=== PATIENT | male | born 1985 | race Caucasian/White ===

== ENCOUNTER 2017-06-05 20:44 | Emergency (ER) | payer BC ==
[2017-06-05] MEDS ORDERED: Diphtheria,Pertussis(Acell),Tetanus Vaccine 0.5 ML Syringe IM ONE (20:59)
--- NOTE | 2017-06-05 20:59 | EDM.PDOC ---
ED HPI GENERAL MEDICAL PROBLEM - General Chief Complaint: Eye Problems Stated Complaint: METAL INSIDE RT EYE Time Seen by Provider: 06/05/17 20:50 Source of Information: Reports: Patient History Limitations: Reports: No Limitations - History of Present Illness INITIAL COMMENTS - FREE TEXT/NARRATIVE: HISTORY AND PHYSICAL: History of present illness: Patient is a 31-year-old male who presents to the emergency room with complaints of "metal" foreign body to his right eye. States yesterday he was cutting a piece of metal when he felt pain and "metal fling" into his right eye. He continued to work and stated that it felt irritated and dry. As the day progressed he noticed a foreign body which she tried to remove with a tweezer. He states he was unsuccessful and proceeded to the emergency room today. Patient does wear corrective glasses. He was wearing these while cutting the metal. Denies any visual changes. States his eye feels irritated. Unsure of his last tetanus. Has an appointment tomorrow to have an eye examination in [place]. Review of systems: As per history of present illness and below otherwise all systems reviewed and negative. Past medical history: As per history of present illness and as reviewed below otherwise noncontributory. Surgical history: As per history of present illness and as reviewed below otherwise noncontributory. Social history: No reported history of drug or alcohol abuse. Family history: As per history of present illness and as reviewed below otherwise noncontributory. Physical exam: General: Well-developed and well-nourished 31-year-old male. Alert and oriented. Nontoxic appearing and in no acute distress. HEENT: Atraumatic, normocephalic, pupils reactive, right eye is slightly injected with a foreign body (pin point) at the 4 o'clock position on the iris. No drainage or discharge noted. Negative for conjunctival pallor or scleral icterus, mucous membranes moist, throat clear, neck supple, nontender, trachea midline. Lungs: Clear to auscultation, breath sounds equal bilaterally, chest nontender. Heart: S1S2, regular, negative for clicks, rubs, or JVD. Abdomen: Soft, nondistended, nontender. Negative for masses or hepatosplenomegaly. Negative for costovertebral tenderness. Pelvis: Stable nontender. Genitourinary: Deferred. Rectal: Deferred. Extremities: Atraumatic, negative for cords or calf pain. Neurovascular unremarkable. Neuro: Awake, alert, oriented. Cranial nerves II through XII unremarkable. Cerebellum unremarkable. Motor and sensory unremarkable throughout. Exam nonfocal. Dr. Holman, the grain merchandising manager account relationship manager, was consulted on this case. He states he will see the patient now after discharge over at [facility]. I did offer to prescribe the patient antibiotic eye drop prior to discharge, he states he will provide this after his evaluation. Patient did receive a tetanus booster while here. Explained this to the patient, he voices understanding and is agreeable to plan of care. He denies any further questions at this time. Diagnostics: Fluroscene eye exam Therapeutics: Tdap, Propairicaine eye gtts Impression: Foreign body of right eye Plan: 1. Immediately present to the [facility] across the bypass to meet Dr. Holman, the grain merchandising manager. Present to the front door (DOOR #1). He will meet you there at 9:30 PM. Please inquire about a antibiotic eyedrop. 2. Follow up with her primary care provider in the next 1-2 days. Return to the ED as needed and as discussed. Definitive disposition and diagnosis as appropriate pending reevaluation and review of above. Duration: Day(s): Location: Reports: Face - Related Data Allergies Allergy/AdvReac Type Severity Reaction Status Date / Time No Known Allergies Allergy Verified 06/05/17 20:52 Home Meds: Home Meds . [No Known Home Meds] 06/05/17 [History] ED ROS GENERAL - Review of Systems Review Of Systems: ROS reveals no pertinent complaints other than HPI. ED EXAM GENERAL W FULL EYE - Physical Exam Exam: See Below (See dictation) Course - Vital Signs Last Recorded V/S: Last Vital Signs Temp 98 F 06/05/17 20:44 Pulse 78 06/05/17 20:44 Resp 18 06/05/17 20:44 BP 158/94 H 06/05/17 20:44 Pulse Ox 97 06/05/17 20:44 - Orders/Labs/Meds Orders: Active Orders 24 hr Category Date Time Status Vaccines to be Administered [RC] PER UNIT ROUTINE Care 06/05/17 20:59 Ordered Diphth,Pertuss(Acell),Tet Vac [Adacel] Med 01/17/18 20:59 Once 0.5 ml IM .ONCE ONE Proparacaine [Proparacaine 0.5% Ophth Soln] Med 06/05/17 21:00 Active 2 ml EYERT STAT Medication Orders Diphtheria/Tetanus/Acell Pertussis (Adacel) 0.5 ml IM .ONCE ONE Stop: 06/05/17 21:00 Proparacaine HCl (Proparacaine 0.5% Ophth Soln) 2 ml EYERT STAT FLORA Last Admin: 06/05/17 20:57 Dose: 2 ml Meds: Medications Generic Name Dose Route Start Last Admin Trade Name Freq PRN Reason Stop Dose Admin Diphtheria/Tetanus/Acell Pertussis 0.5 ml 06/05/17 20:59 Adacel IM 06/05/17 21:00 .ONCE ONE Proparacaine HCl 2 ml 06/05/17 21:00 06/05/17 20:57 Proparacaine 0.5% Ophth Soln EYERT 2 ml STAT FLORA Administration Departure - Departure Time of Disposition: 21:06 Disposition: Home, Self-Care 01 Clinical Impression: Foreign body of right eye Qualifiers: Encounter type: initial encounter Qualified Code(s): T15.91XA - Foreign body on external eye, part unspecified, right eye, initial encounter - Discharge Information Referrals: PCP,None [Primary Care Provider] - Forms: ED Department Discharge Additional Instructions: My general discharge The following information is given to patients seen in the emergency department who are being discharged to home. This information is to outline your options for follow-up care. We provide all patients seen in our emergency department with a follow-up referral. The need for follow-up, as well as the timing and circumstances, are variable depending upon the specifics of your emergency department visit. If you don't have a primary care physician on staff, we will provide you with a referral. We always advise you to contact your personal physician following an emergency department visit to inform them of the circumstance of the visit and for follow-up with them and/or the need for any referrals to a consulting specialist. The emergency department will also refer you to a specialist when appropriate. This referral assures that you have the opportunity for follow-up care with a specialist. All of these measure are taken in an effort to provide you with optimal care, which includes your follow-up. Under all circumstances we always encourage you to contact your private physician who remains a resource for coordinating your care. When calling for follow-up care, please make the office aware that this follow-up is from your recent emergency room visit. If for any reason you are refused follow-up, please contact the [facility] Emergency Department at and asked to speak to the emergency department charge nurse. [address] [address] 1. Immediately present to the [facility] across the bypass to meet Dr. Holman, the grain merchandising manager. Present to the front door (DOOR #1). He will meet you there at 9:30 PM. Please inquire about a antibiotic eyedrop. The address is listed above. 2. Follow up with her primary care provider in the next 1-2 days. Return to the ED as needed and as discussed. - My Orders Last 24 Hours: My Active Orders 06/05/17 20:59 Vaccines to be Administered [RC] PER UNIT ROUTINE Diphth,Pertuss(Acell),Tet Vac [Adacel] 0.5 ml IM .ONCE ONE - Assessment/Plan Last 24 Hours: My Active Orders 06/05/17 20:59 Vaccines to be Administered [RC] PER UNIT ROUTINE Diphth,Pertuss(Acell),Tet Vac [Adacel] 0.5 ml IM .ONCE ONE
[2017-06-05] MEDS ORDERED: Proparacaine 0.5% Ophth Soln 15 ML Bottle EYERT SCH (21:00)
== END 2017-06-05 21:15 | disposition home or self-care (01) ==
LOC: MW.ED 20:44
DX: T15.91XA Foreign body on external eye, part unspecified, right eye, initial encounter (principal); Z23 Encounter for immunization
CPT/HCPCS: 90471; 90715; 99283-25; 99284

== ENCOUNTER 2017-07-26 23:09 | Emergency (ER) | payer BC ==
[2017-07-26] MEDS ORDERED: Lidocaine 1% 20 ML MDV INJECT ONE (23:24)
[2017-07-26] MEDS ORDERED: Bacitracin Oint 1 GM U/D Packet TOP ONE (23:25)
--- NOTE | 2017-07-26 23:30 | EDM.PDOC ---
ED HPI GENERAL MEDICAL PROBLEM - General Chief Complaint: Laceration Stated Complaint: L RING FINGER INJURY Time Seen by Provider: 07/26/17 23:13 - History of Present Illness INITIAL COMMENTS - FREE TEXT/NARRATIVE: HISTORY AND PHYSICAL: History of present illness: The patient is a 31-year-old male who is up-to-date on his tetanus shot and is right-hand dominant presents with complaints of cutting his finger on a carbon plant grinder at home tonight. The patient blames of a laceration to the dorsal aspect of the left fourth digit and came here at the insistence of his . Patient says he is able to move the finger and there is only minimal pain in this area. He denies any other injuries. Patient says he does not feel that there was any crushing component to the injury. Review of systems: As per history of present illness and below otherwise all systems reviewed and negative. Past medical history: As per history of present illness and as reviewed below otherwise noncontributory. Surgical history: As per history of present illness and as reviewed below otherwise noncontributory. Social history: No reported history of drug or alcohol abuse. Family history: As per history of present illness and as reviewed below otherwise noncontributory. Physical exam: Gen.: Well-developed well-nourished man who is nontoxic and speaking clearly and easily in the ED. Vital signs of been reviewed by me HEENT: Atraumatic, normocephalic, negative for conjunctival pallor or scleral icterus, mucous membranes moist, throat clear, neck supple, nontender, trachea midline. Lungs: Clear to auscultation, breath sounds equal bilaterally, chest nontender. Heart: S1S2, regular rate and rhythm no overt murmurs Abdomen: Soft, nondistended, nontender. NABS Pelvis: Deferred Genitourinary: Deferred. Rectal: Deferred. Extremities: Atraumatic and full range of motion of all extremities with the exception of the left fourth digit where there is a jagged 1 cm laceration at the base of the cuticle/nailbed. There is a small triangular area of tissue loss seen at the most distal aspect and the nail and nailbed are intact. There is no soft tissue swelling and the patient is able to flex and extend at the finger without difficulties. There is no gross bleeding. The remainder of the fingers and left hand are without injuries. The legs are, negative for cords or calf pain. Neurovascular unremarkable. Neuro: Awake, alert, oriented. Cranial nerves II through XII unremarkable. Cerebellum unremarkable. Motor and sensory unremarkable throughout. Exam nonfocal. Diagnostics: Patient was offered a finger x-ray and defers Therapeutics: Wound care bacitracin and tube gauze Procedure note: After the wound was cleansed by nursing the area was prepped and draped in sterile fashion and a 1% lidocaine without epinephrine digital block was placed. The wound was explored and no foreign bodies were appreciated. The skin edges were reapproximated using a total number of #2 sutures of 4-0 nylon. The patient was made aware of the small area of tissue loss and the need to allow that to heal by secondary intention. The patient tolerated the procedure well and there were no complications. Bacitracin and a tube gauze were placed by nursing Impression: Left fourth finger laceration Definitive disposition and diagnosis as appropriate pending reevaluation and review of above. - Related Data Allergies Allergy/AdvReac Type Severity Reaction Status Date / Time No Known Allergies Allergy Verified 07/26/17 23:16 Home Meds: Home Meds Albuterol Sulfate 0.63 mg IH ASDIRECTED PRN 07/26/17 [History] Past Medical History - Past Health History Medical/Surgical History: Denies Medical/Surgical History HEENT History: Reports: Impaired Vision Other HEENT History: wears glasses Social & Family History - Family History Family Medical History: Noncontributory - Recreational Drug Use Recreational Drug Use: No ED ROS GENERAL - Review of Systems Review Of Systems: ROS reveals no pertinent complaints other than HPI. ED EXAM, SKIN/RASH Exam: See Below (See dictation) Course - Vital Signs Last Recorded V/S: Last Vital Signs Temp 36.3 C 07/26/17 23:18 Pulse 70 07/26/17 23:18 Resp 14 07/26/17 23:18 BP 144/84 H 07/26/17 23:18 Pulse Ox 96 07/26/17 23:18 - Orders/Labs/Meds Orders: Active Orders 24 hr Category Date Time Status Communication Order [RC] STAT Care 07/26/17 23:24 Active Meds: Medications Discontinued Medications Generic Name Dose Route Start Last Admin Trade Name Freq PRN Reason Stop Dose Admin Bacitracin 1 dose 07/26/17 23:25 07/26/17 23:30 Bacitracin Oint 1 Gm TOP 07/26/17 23:26 1 dose ONETIME ONE Administration Lidocaine HCl 20 ml 07/26/17 23:24 07/26/17 23:30 Xylocaine 1% INJECT 07/26/17 23:25 20 ml ONETIME ONE Administration Departure - Departure Time of Disposition: 23:50 Disposition: Home, Self-Care 01 Condition: Good Clinical Impression: Laceration of left ring finger Qualifiers: Encounter type: initial encounter Damage to nail status: without damage Foreign body presence: without foreign body Qualified Code(s): S61.215A - Laceration without foreign body of left ring finger without damage to nail, initial encounter - Discharge Information Referrals: PCP,Not In Area [Primary Care Provider] - Forms: ED Department Discharge Additional Instructions: The following information is given to patients seen in the emergency department who are being discharged to home. This information is to outline your options for follow-up care. We provide all patients seen in our emergency department with a follow-up referral. The need for follow-up, as well as the timing and circumstances, are variable depending upon the specifics of your emergency department visit. If you don't have a primary care physician on staff, we will provide you with a referral. We always advise you to contact your personal physician following an emergency department visit to inform them of the circumstance of the visit and for follow-up with them and/or the need for any referrals to a consulting specialist. The emergency department will also refer you to a specialist when appropriate. This referral assures that you have the opportunity for followup care with a specialist. All of these measure are taken in an effort to provide you with optimal care, which includes your followup. Under all circumstances we always encourage you to contact your private physician who remains a resource for coordinating your care. When calling for followup care, please make the office aware that this follow-up is from your recent emergency room visit. If for any reason you are refused follow-up, please contact the [facility] emergency department at and ask to speak to the emergency department charge nurse. [facility] Primary care- Internal Medicine and Family [address] [address] [facility] Specialty clinic-Plastic Surgery and Hand Surgery Professional [address] [address] Keep the dressing that was placed in the ER on for the next 24 hours then remove and cleanse with mild soap and water pat dry and apply bacitracin. You can continue the ointment for the next one week. Sutures should be removed in 7 days either here, with your provider in the clinic, or with our hand specialist Dr. Bauer as you choose. Return to ER as needed and as discussed - My Orders Last 24 Hours: My Active Orders 07/26/17 23:24 Communication Order [RC] STAT - Assessment/Plan Last 24 Hours: My Active Orders 07/26/17 23:24 Communication Order [RC] STAT
== END 2017-07-27 | disposition home or self-care (01) ==
LOC: MW.ED 23:09 → EDBD 23:09 → MW.ED 07-27
DX: S61.215A Laceration without foreign body of left ring finger without damage to nail, initial encounter (principal); W31.89XA Contact with other specified machinery, initial encounter
CPT/HCPCS: 12001; 99282; 99283

== ENCOUNTER 2019-03-01 01:14 | Emergency (ER) | payer BC ==
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
--- NOTE | 2019-03-01 02:07 | CR ---
Indication: Swelling Technique: Three views right hand Comparison: None Findings/impression: Plate and screw hardware in the distal 5th metacarpal. No hardware complication identified. Mildly comminuted fracture of the 2nd metacarpal head, possibly subacute. Mild soft tissue swelling of the hand. Remainder of the osseous structures are intact. Dictated by Aydee Turpin MD @ Mar 01 2019 2:05AM Signed by Dr. Aydee Turpin @ Mar 01 2019 2:05AM
== END 2019-03-01 02:20 | disposition home or self-care (01) ==
LOC: MW.ED 01:14
DX: S62.310A Displaced fracture of base of second metacarpal bone, right hand, initial encounter for closed fracture (principal); Y04.0XXA Assault by unarmed brawl or fight, initial encounter; Y93.89 Activity, other specified
CPT/HCPCS: 73130-26-RT; 73130-RT; 99283; 99283-25